=== PATIENT | male | born 1960 | race Caucasian/White ===

== ENCOUNTER 2017-06-20 09:31 | Day surgery (SDC) | payer BC ==
[~2017-06-20 09:31] MED LIST: LIDOCAINE HCL 1% MPF SOL ONE; PROPOFOL 500 MG/50 ML EMU IV ONE
[2017-06-20 11:58] VITALS: TEMP 97.5
[2017-06-20] MEDS ORDERED: AMLODIPINE 5 MG TAB ONE (12:12)
[2017-06-20 12:58] VITALS: BP 143/94; PULSE 74; RESP 20; O2SAT 96
== END 2017-06-20 12:55 | disposition home or self-care (01) ==
LOC: SURG 09:31
PROVIDERS: ATTEND Surgery
DX: Z12.11 Encounter for screening for malignant neoplasm of colon (principal); K57.30 Diverticulosis of large intestine without perforation or abscess without bleeding; Z80.0 Family history of malignant neoplasm of digestive organs
CPT/HCPCS: A9270-GY; J2001; J2704